=== PATIENT | male | born 1940 | race Caucasian/White ===

== ENCOUNTER 2017-10-29 14:53 | Observation (INO) | payer OTHER ==
[~2017-10-29] VITALS: Ht 177.8 cm; Wt 91.6 kg
[2017-10-29 14:55] VITALS: BP 161/86
[2017-10-29] MEDS ORDERED: METFORMIN HCL500 MG PO (14:58)
[2017-10-29] MEDS ORDERED: PRINIVIL20 MG PO (14:59)
[2017-10-29 15:18] LABS: ABSOLUTE BASOPHILS 0.1 thou/uL (0.0-0.2); ABSOLUTE EOSINOPHILS 0.3 thou/uL (0.0-0.7); ABSOLUTE LYMPHOCYTES 2.6 thou/uL (0.8-5.3); ABSOLUTE MONOCYTES 0.7 thou/uL (0.0-1.2); ABSOLUTE NEUTROPHILS 3.8 thou/uL (1.6-8.1); BASOPHILS 0.8 %; EOSINOPHILS 3.8 %; HEMATOCRIT 42.2 % (42.0-52.0); HEMOGLOBIN 14.8 gm/dL (14.0-18.0); LYMPHOCYTES 35.2 %; MCH 33.6 pg (26.0-34.0); MCHC 35.1 g/dL (28.0-37.0); MCV 95.5 fL (80.0-100.0); MONOCYTES 9.4 %; MPV 7.9 fl. (7.2-11.1); NUCLEATED RBCS 0 /100WBC; PLATELET COUNT* 329 thou/uL (150-400); POLYS 50.8 %; RBC 4.42 mil/uL (4.50-6.00); RDW-CV 12.8 % (10.5-14.5); WBC 7.4 thou/uL (4.0-11.0)
[2017-10-29 15:27] LABS: ANION GAP 6 mmol/L (7-16); BUN 13 mg/dL (7-18); CALCIUM 9.7 mg/dL (8.5-10.1); CHLORIDE 103 mmol/L (98-107); CO2 29 mmol/L (21-32); CREATININE 1.3 mg/dL (0.6-1.3); GLUCOSE 136 mg/dL (70-99); POTASSIUM 3.9 mmol/L (3.5-5.1); SODIUM 138 mmol/L (136-145)
[2017-10-29 15:30] LABS: APTT 26.5 Seconds (25.0-31.3); PROTIME 9.8 Seconds (9.20-11.50)
[2017-10-29 15:49] LABS: ALBUMIN 4.3 g/dL (3.4-5.0); ALKALINE PHOSPHATASE 75 U/L (46-116); CK-MB MASS 0.7 ng/mL (<0.5-3.6); LIPASE 137 U/L (73-393); MAGNESIUM 1.8 mg/dL (1.8-2.4); NT-PRO BRAIN NAT PEPTIDE 86 pg/mL (<300); SGOT 32 U/L (15-37); SGPT 59 U/L (30-65); TOTAL BILIRUBIN 1.3 mg/dL (<0.1-1.0); TOTAL PROTEIN 7.8 g/dL (6.4-8.2); TROPONIN-I LEVEL <0.06 ng/mL (<0.06)
[2017-10-29 16:34] VITALS: BP 149/51
[2017-10-29 16:45] VITALS: BP 186/84
[2017-10-29] MEDS ORDERED: VITAMINC500 PO (17:27)
[2017-10-29] MEDS ORDERED: VITAMIN D3400 UNIT PO (17:27)
[2017-10-29] MEDS ORDERED: FISH OIL 1,001000 M2 PO (17:28)
[2017-10-29] MEDS ORDERED: ASPIR 8181 M1 PO (17:28)
[2017-10-29] MEDS ORDERED: GLUCOSAMINE HC500 MG PO (17:29)
[2017-10-29] MEDS ORDERED: UNICOMPLEX M TA1 TA1 PO (17:30)
[2017-10-29 20:00] VITALS: BP 167/78
[2017-10-30] VITALS: BP 152/76
[2017-10-30 04:00] VITALS: BP 137/69
[2017-10-30 12:02] VITALS: BP 123/87
--- NOTE | 2017-10-30 12:40 | EKG ---
[place] [address] ELECTROCARDIOGRAM REPORT Name: KEVIN BANDA Room: [address] ADM IN M.R.#: [id number] Admission: 10/29/17 Attend Phys: Jane Alvarado MD Discharge: Date of : 40 Report #: [id number] THIS REPORT FOR: //name// [facility] ED Test Date: 2017-10-29 Test Time: 15:08:13 Pat Name: KEVIN BANDA Department: Room: [facility] Gender: M Siphoner: [place] : 1940 Requested By: Yohan Wesley Order Number: [id number] MD: Yung Ashraf Measurements Intervals [place] Rate: 96 P: 47 ME: 212 QRS: -9 QRSD: 100 T: 67 QT: 339 QTc: 429 Interpretive Statements Sinus tachycardia Multiple ventricular premature complexes Borderline prolonged ME interval Abnormal R-wave progression, early transition Left ventricular hypertrophy No previous ECG available for comparison Electronically Signed On 10-30-2017 12:39:56 CDT by Yung Ashraf [email or web address] <ELECTRONICALLY SIGNED> By: Yung Ashraf MD, [facility] 10/30/17 1239 1508 1508 Yung Ashraf MD, [facility] /EPI
--- NOTE | 2017-10-30 12:40 | EKG ---
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
[2017-10-30 15:36] VITALS: BP 138/58
[2017-10-30 20:00] VITALS: BP 125/63
[2017-10-31] VITALS: BP 128/68
[2017-10-31 04:39] VITALS: BP 134/65
[2017-10-31 05:11] LABS: ABSOLUTE BASOPHILS 0.1 thou/uL (0.0-0.2); ABSOLUTE EOSINOPHILS 0.3 thou/uL (0.0-0.7); ABSOLUTE MONOCYTES 1.1 thou/uL (0.0-1.2); ABSOLUTE NEUTROPHILS 4.6 thou/uL (1.6-8.1); BASOPHILS 0.8 %; EOSINOPHILS 3.5 %; HEMATOCRIT 39.7 % (42.0-52.0); HEMOGLOBIN 13.6 gm/dL (14.0-18.0); LYMPHOCYTES 32.8 %; MCHC 34.4 g/dL (28.0-37.0); MONOCYTES 12.1 %; MPV 8.2 fl. (7.2-11.1); NUCLEATED RBCS 0 /100WBC; PLATELET COUNT* 284 thou/uL (150-400); POLYS 50.8 %; RBC 4.14 mil/uL (4.50-6.00); RDW-CV 12.6 % (10.5-14.5); WBC 9.1 thou/uL (4.0-11.0)
[2017-10-31 06:12] LABS: ANION GAP 8 mmol/L (7-16); BUN 17 mg/dL (7-18); CALCIUM 9.5 mg/dL (8.5-10.1); CHLORIDE 104 mmol/L (98-107); CO2 27 mmol/L (21-32); CREATININE 1.4 mg/dL (0.6-1.3); GLUCOSE 125 mg/dL (70-99); POTASSIUM 3.8 mmol/L (3.5-5.1); SODIUM 139 mmol/L (136-145)
[2017-10-31 06:24] LABS: CHOLESTEROL 171 mg/dL (<200); HDL CHOLESTEROL 29 mg/dL (>40); LDL CHOLESTEROL 98 mg/dL (<100); TC:HDL 5.9 Ratio (Not establshd); TRIGLYCERIDE 224 mg/dL (<150); VLDL 45 mg/dL (<40)
[2017-10-31 06:25] LABS: SERUM ASSESSMENT Clear
[2017-10-31 08:00] VITALS: BP 163/57
--- NOTE | 2017-10-31 15:24 | 2DMMODE ---
[place] [address] 2 D/M-MODE ECHOCARDIOGRAM Name: KEVIN BANDA Room: [address] Jose De Jesus Christopher#: [id number] Admission: 10/29/17 Attend Phys: Jane Alvarado, Discharge: Date of : 40 Date of Service: 10/31/17 1524 Report #: [id number] THIS REPORT FOR: //name// APPROVED REPORT Study performed: 10/31/2017 11:55:14 EXAM: Comprehensive 2D, Doppler, and color-flow Echocardiogram Patient Location: In-Patient Room #: 230 Status: routine BSA: 2.10 HR: 80 bpm BP: 134/65 mmHg Rhythm: NSR Other Information Study Quality: Good Risk Factors: Cardiac Risk Factors: AGE , FHX of CAD Indications Arrhythmia Chest Pain 2D Dimensions LVEF(%): 72.35 (>50%) IVSd: 9.33 (7-11mm) LVOT Diam: 22.21 (18-24mm) LVDd: 45.27 mm PWd: 10.83 (7-11mm) Ascending Ao: 32.35 (22-36mm) LVDs: 26.55 (25-40mm) Aortic Root: 35.08 mm Ball's LVEF: 72.35 % Volumes Left Atrial Volume (Systole) LA ESV Index: 15.00 mL/m2 Aortic Valve AoV Peak Sigifredo.: 1.15 m/s AO Peak Gr.: 5.28 mmHg LVOT Max P.91 mmHg AO Mean Gr.: 3.11 mmHg LVOT Mean P.34 mmHg LVOT Max V: 0.85 m/s AO V2 VTI: 19.39 cm LVOT Mean V: 0.53 m/[place] [address] 2 D/M-MODE ECHOCARDIOGRAM Name: KEVIN BANDA Room: [address] MAceRAce#: [id number] Admission: 10/29/17 Attend Phys: Jane Alvarado, Discharge: Date of : 40 Date of Service: 10/31/17 1524 Report #: [id number] MONICA (VTI): 3.18 cm2 LVOT V1 VTI: 15.90 cm Mitral Valve E/A Ratio: 0.67 MV Decel. Time: 161.82 ms MV E Max Sigifredo.: 0.64 m/s MV PHT: 46.93 ms MVA (PHT): 4.69 cm2 TDI E/Lateral E': 6.40 E/Medial E': 7.11 Medial E' Sigifredo.: 0.09 m/s Lateral E' Sigifredo.: 0.10 m/s Pulmonary Valve PV Peak Sigifredo.: 1.12 m/s PV Peak Gr.: 4.98 mmHg Left Ventricle The left ventricle is normal size. There is normal LV segmental wall motion. There is normal left ventricular wall thickness. Left ventricular systolic function is normal. The left ventricular ejection fraction is within the normal range. LVEF is 60-65%. Grade I - abnormal relaxation pattern. Right Ventricle The right ventricle is normal size. The right ventricular systolic function is normal. Atria The left atrium size is normal. The right atrium size is normal. Aortic Valve The aortic valve is normal in structure. No aortic regurgitation is present. There is no aortic valvular stenosis. Mitral Valve The mitral valve is normal in structure. There is no mitral valve regurgitation noted. No evidence of mitral valve stenosis. Tricuspid Valve The tricuspid valve is normal in structure. Unable to assess PA pressure. Pulmonic Valve The pulmonary valve is normal in structure. [place] [address] 2 D/M-MODE ECHOCARDIOGRAM Name: KEVIN BANDA Room: [address]#: [id number] Admission: 10/29/17 Attend Phys: Jane Alvarado, Discharge: Date of : 40 Date of Service: 10/31/17 1524 Report #: [id number] valvular regurgitation. Great Vessels The aortic root is normal in size. IVC is normal in size and collapses with >50% inspiration Pericardium There is no pericardial effusion. <Conclusion> Left ventricular systolic function is normal. The left ventricular ejection fraction is within the normal range. <ELECTRONICALLY SIGNED> By: Mansoor Aguirre MD, FACC 10/31/17 1524 1524 1524 Mansoor Aguirre MD, FACC /INF
[2017-10-31 15:31] VITALS: BP 137/61
[2017-10-31 16:06] VITALS: BP 137/61
[2017-10-31] MEDS ORDERED: LOPRESSOR25 PO (16:41)
[2017-10-31 16:42] VITALS: BP 137/61
--- NOTE | 2017-11-01 17:14 | CARDNUC ---
[place] [address] CARDIAC NUCLEAR IMAGING REPORT Name: VERONIKAKEVIN [address]: [address]#: [id number] Admission: 10/29/17 Attend Phys: Jane Alvarado, Discharge: 10/31/17 Date of : 40 Date of Service: 11/01/17 1714 Report #: [id number] THIS REPORT FOR: //name// APPROVED REPORT Study performed: 10/30/2017 11:36:00 Indication: Chest pain, Dyspnea Patient Location: Out-Patient Stress Tech: Deepti Odom Stress Nurse: Patricia Lopez RN Ht: 5 ft 10 in Wt: 202 lbs BSA: 2.10 m2 HR: 81 bpm BP: 190/85 mmHg BMI: 28.98 Rhythm: NSR Medical History Allergies: No known drug allergies Exercise History: Indeterminate Resting Data Rest SPECT myocardial perfusion imaging was performed in supine position 30 minutes following the intravenous injection of 11.3 mCi of Tc-99m Sestamibi. Time of rest injection: 0945 The images were gated to evaluate regional wall motion and calculate left ventricular ejection fraction. Administration Route: IV Administration Site: Right AC Pharmacologic Stress Pharmacologic stress test was performed by injecting Regadenoson 0.4 mg IV push over 10-15 seconds immediately followed by the intravenous injection of 31.6 mCi of Tc-99m Sestamibi. Time of stress injection: 1140 Time of stress imagin Administration Route: IV Administration Site: Right AC Heart Rate at time of stress injection: 148 bpm. Gated Stress SPECT was performed 60 minutes after stress injection. The images were gated to evaluate regional wall motion and calculate left ventricular ejection fraction. [place] [address] CARDIAC NUCLEAR IMAGING REPORT Name: KEVIN BANDA Room: [address] Candi#: [id number] Admission: 10/29/17 Attend Phys: Jane Alvarado, Discharge: 10/31/17 Date of : 40 Date of Service: 11/01/17 1714 Report #: [id number] Stress Test Details Stress Test: Exercise stress testing was performed using a Charles protocol. HR Max Heart Rate (APMHR): 143 bpm Resting HR: 81 bpm Target HR (85% APMHR): 121 bpm Max HR Achieved: 148 bpm % of APMHR: 103 Recovery HR: 98 bpm BP Resting BP: 190/85 mmHg Recovery BP: 180/79 mmHg ECG Resting ECG: Sinus Rhythm, normal EKG Stress ECG: Sinus Tachycardia ST Change: None Arrhythmia: VPC's Recovery ECG: Sinus Rhythm, normal EKG Recovery ST Change: None Recovery Arrhythmia: VPC Clinical Reason for Termination: Completed protocol Stress Symptoms: Dyspnea Exercise duration: 5 min sec Exercise capacity: 7.05 METs The patient had no chest discomfort with standard Charles protocol exercise. Nurse Comments SOA DURING EXECRCISE Stress ECG Conclusion The baseline 12-lead electrocardiogram shows sinus rhythm without significant ST or T wave abnormality. Obtained during and after exercise stress showedST or T wave changes when compared to baseline. The patient unifocal premature ventricular contractions but no other significant stress-induced arrhythmias. Study Quality Study: Good Artifact: [place] [address] CARDIAC NUCLEAR IMAGING REPORT Name: VERONIKAKEVIN Room: [address] Candi#: [id number] Admission: 10/29/17 Attend Phys: Jane Alvarado, Discharge: 10/31/17 Date of : 40 Date of Service: 11/01/17 1714 Report #: [id number] Study Data At rest, the left ventricular ejection fraction was 67%.. Post stress, the left ventricular ejection was 68%.. TID = 0.97. Perfusion Normal left ventricular perfusion. Wall Motion Normal left ventricular wall motion. Nuclear Conclusion ECG Findings: negative for ischemia Clinical Findings: negative for ischemia Nuclear Findings: negative for ischemia Exercise Capacity: normal Left Ventricular Function: normal Risk Study: low Myocardial perfusion images show no defect to suggest infarct or ischemia. Left ventricular systolic function appears normal on gated studies. This is a low risk study. <Conclusion> The baseline 12-lead electrocardiogram shows sinus rhythm without significant ST or T wave abnormality. Obtained during and after exercise stress showedST or T wave changes when compared to baseline. The patient unifocal premature ventricular contractions but no other significant stress-induced arrhythmias. <ELECTRONICALLY SIGNED> By: Yung Ashraf MD, FACC 11/01/17 1714 13 13 Yung Ashraf MD, FACC /INF
--- NOTE | 2017-11-02 08:44 | CON ---
[address] [address] CONSULTATION Name: KEVIN BANDA Room: [address] Jose De Jesus Christopher#: [id number] Admission: 10/29/17 Attend Phys: Jane Alvarado MD Discharge: 10/31/17 Date of : 40 Report #: [id number] THIS REPORT FOR: //name// CC: Kathie Alvarado INDICATION: Palpitations and chest discomfort. HISTORY OF PRESENT ILLNESS: The patient is a fairly healthy 77-year-old with history of borderline diabetes and hypertension who presents to the hospital with complaints of palpitations beginning 2 days ago. He was seated in his chair when this began. At that time, he also had some discomfort in the left lower chest radiating to the left arm and neck. The pain was intermittent, waxing and waning. There was no association with activity. There was no associated nausea or vomiting. The pain gradually subsided, but the palpitations have persisted. Here in the hospital, he is noted to have PVCs as well as couplets and triplets of premature ventricular contractions. Cardiac enzymes are unremarkable. He is without other cardiac complaint. PAST MEDICAL HISTORY: 1. Hypertension. 2. Borderline diabetes. PAST SURGICAL HISTORY: None. SOCIAL HISTORY: The patient quit smoking in 1989. He does not drink alcohol. FAMILY HISTORY: Positive for coronary artery disease. The patient's father of heart disease at 64. All of his paternal uncles of heart disease. REVIEW OF SYSTEMS: GENERAL: He denies convulsions, seizures or focal paralysis. In general, there is no unexplained weight loss or fever. RESPIRATORY: He denies cough, sputum production or underlying lung disease. CARDIAC: He has palpitations, chest discomfort as outlined above. He is without significant shortness of breath, orthopnea, or paroxysmal nocturnal dyspnea. He denies any history of murmurs or edema. ENDOCRINE: He has borderline diabetes. Denies thyroid disorders. GASTROINTESTINAL: No vomiting, hematemesis, melena, hematochezia, jaundice, hepatitis. GENITOURINARY: No dysuria or hematuria. HEMATOLOGIC AND LYMPHATIC: No history of anemia, bleeding disorder, cancer, blood clots. ALLERGY AND IMMUNOLOGIC: He has no seasonal or medical allergies. PSYCHIATRIC: No depression or anxiety. MUSCULOSKELETAL: He has mild arthritis without [place] [address] CONSULTATION Name: KEVIN BANDA [address]: [address]#: [id number] Admission: 10/29/17 Attend Phys: Jane Alvarado MD Discharge: 10/31/17 Date of : 40 Report #: [id number] SKIN: No recent rashes, hives or chronic skin conditions. EYES: He does wear glasses. He has no acute loss in vision. EARS, NOSE, MOUTH, THROAT: Mild decreased hearing. No epistaxis. ALLERGIES: None. CURRENT MEDICATIONS: Fish oil 1000 mg daily, Protonix 40 mg daily, glucosamine 500 mg with meals, multivitamin 1 tablet daily, aspirin 81 mg daily, vitamin D 500 units daily, vitamin C 500 mg daily, lisinopril 40 mg daily, metformin 500 mg daily, Pepcid 20 mg b.i.d., Lovenox 40 units subcutaneous at bedtime. PHYSICAL EXAMINATION: VITAL SIGNS: Stable. Blood pressure 137/69, pulse is 70s and regular. GENERAL: This is a pleasant gentleman in no distress. Mood and affect appropriate. HEENT: The patient is wearing glasses. Extraocular muscles intact. Mucous membranes are moist. NECK: Shows no jugular venous distention. There are no carotid bruits. CHEST: Reveals clear lung rose without wheezes or rales. CARDIAC: Reveals a regular rhythm with normal S1 and S2. I do not appreciate gallop or murmur. ABDOMEN: Reveals normal bowel sounds. The abdomen is soft, nontender. EXTREMITIES: Shows no edema. Peripheral pulses 2+ and palpable. SKIN: Warm and dry. LABORATORY DATA: A 12-lead EKG shows sinus rhythm with nonspecific intraventricular conduction delay and unifocal premature ventricular contractions. Labs are reviewed. Sodium 138, potassium 3.9, chloride 103, bicarb 29, BUN 13, creatinine 1.3, serum glucose 136. LFTs within normal limits. Troponins are less than 0.06 on 3 separate occasions. NT-proBNP is 86. CBC shows a white blood cell count of 7.4, hemoglobin 14.8, platelet count 329,000. IMPRESSION AND RECOMMENDATIONS: 1. Chest discomfort. The etiology not clear. The patient has risk factors for coronary artery disease. We will proceed with noninvasive stress testing at this time. 2. Palpitations due to unifocal premature ventricular contractions as well as ventricular couplets and triplets. I would like to obtain echocardiogram to evaluate underlying cardiac structure and function and rule out significant left ventricular dysfunction. 3. Hypertension. Blood pressure adequately controlled on the patient's current [facility] [address] [place] [address] CONSULTATION Name: KEVIN BANDA Room: [address] Jose De Jesus Christopher#: [id number] Admission: 10/29/17 Attend Phys: Jane Alvarado MD Discharge: 10/31/17 Date of : 40 Report #: [id number]. 4. We will obtain lipid profile to evaluate lipid status. <ELECTRONICALLY SIGNED> By: Yung Ashraf MD, FACC 11/02/17 0844 1144 1900Yung Ashraf MD, FACC /nt
== END 2017-10-31 18:29 | disposition home or self-care (01) ==
LOC: M.ERS 14:53 → M.2W 16:03 → M.TBA-ER 16:03 → M.2W 16:48
PROVIDERS: Family Medicine; Internal Medicine; ADMIT Internal Medicine
DX: R07.89 Other chest pain (principal); I10 Essential (primary) hypertension; E11.9 Type 2 diabetes mellitus without complications; I49.3 Ventricular premature depolarization; E78.1 Pure hyperglyceridemia; R00.2 Palpitations; Z87.891 Personal history of nicotine dependence

== ENCOUNTER 2019-06-02 01:43 | Inpatient (IN) | payer MEDICARE ==
[~2019-06-02] VITALS: Ht 177.8 cm; Wt 94.2 kg
[~2019-06-02 01:43] MED LIST: ASPIR 8181 M1 PO; FISH OIL 1,001000 M2 PO; GLUCOSAMINE HC500 MG PO; LOPRESSOR25 PO; METFORMIN HCL500 MG PO; PRINIVIL20 MG PO; UNICOMPLEX M TA1 TA1 PO; VITAMIN D3400 UNIT PO; VITAMINC500 PO
[2019-06-02 01:51] VITALS: BP 222/99
[2019-06-02 02:04] LABS: ABSOLUTE BASOPHILS 0.1 thou/uL (0.0-0.2); ABSOLUTE EOSINOPHILS 0.3 thou/uL (0.0-0.7); ABSOLUTE LYMPHOCYTES 3.1 thou/uL (0.8-5.3); ABSOLUTE MONOCYTES 1.5 thou/uL (0.0-1.2); ABSOLUTE NEUTROPHILS 9.4 thou/uL (1.6-8.1); BASOPHILS 0.6 %; EOSINOPHILS 1.8 %; LYMPHOCYTES 21.6 %; MCH 33.1 pg (26.0-34.0); MCHC 35.1 g/dL (28.0-37.0); MCV 94.2 fL (80.0-100.0); MONOCYTES 10.6 %; MPV 7.1 fl. (7.2-11.1); NUCLEATED RBCS 0 /100WBC; PLATELET COUNT* 373 thou/uL (150-400); POLYS 65.4 %; RBC 4.25 mil/uL (4.50-6.00); RDW-CV 12.8 % (10.5-14.5); WBC 14.3 thou/uL (4.0-11.0)
[2019-06-02 02:20] LABS: CALCIUM 9.9 mg/dL (8.5-10.1); CREATININE 1.2 mg/dL (0.6-1.3); POTASSIUM 3.7 mmol/L (3.5-5.1)
[2019-06-02 02:27] LABS: APTT 26.4 Seconds (25.0-31.3)
[2019-06-02 02:30] LABS: ALBUMIN 4.2 g/dL (3.4-5.0); TOTAL BILIRUBIN 0.9 mg/dL (<0.1-1.0)
[2019-06-02 07:12] VITALS: BP 169/83
[2019-06-02 11:20] VITALS: BP 169/76
[2019-06-02 12:58] VITALS: BP 168/87
[2019-06-02 19:50] VITALS: BP 154/91
[2019-06-02 23:40] VITALS: BP 139/80
[2019-06-03 04:21] VITALS: BP 147/78
[2019-06-03 04:44] LABS: ABSOLUTE EOSINOPHILS 0.1 thou/uL (0.0-0.7); ABSOLUTE LYMPHOCYTES 2.2 thou/uL (0.8-5.3); ABSOLUTE MONOCYTES 1.6 thou/uL (0.0-1.2); ABSOLUTE NEUTROPHILS 6.8 thou/uL (1.6-8.1); BASOPHILS 0.4 %; EOSINOPHILS 0.8 %; HEMATOCRIT 35.7 % (42.0-52.0); HEMOGLOBIN 12.6 gm/dL (14.0-18.0); LYMPHOCYTES 20.1 %; MCH 33.2 pg (26.0-34.0); MCHC 35.3 g/dL (28.0-37.0); MCV 94.1 fL (80.0-100.0); MONOCYTES 14.8 %; NUCLEATED RBCS 0 /100WBC; PLATELET COUNT* 314 thou/uL (150-400); POLYS 63.9 %; RBC 3.79 mil/uL (4.50-6.00); WBC 10.7 thou/uL (4.0-11.0)
[2019-06-03 05:07] LABS: CHOLESTEROL 164 mg/dL (<200); HDL CHOLESTEROL 28 mg/dL (>40); LDL CHOLESTEROL 94 mg/dL (<100); TC:HDL 5.9 Ratio (Not establshd); TRIGLYCERIDE 213 mg/dL (<150); VLDL 43 mg/dL (<40)
[2019-06-03 05:18] LABS: CALCIUM 8.8 mg/dL (8.5-10.1); CREATININE 1.2 mg/dL (0.6-1.3); POTASSIUM 3.9 mmol/L (3.5-5.1)
[2019-06-03 05:38] LABS: SERUM ASSESSMENT Clear; TROPONIN-I LEVEL 0.65 ng/mL (<0.06)
[2019-06-03 08:00] VITALS: BP 172/85
[2019-06-03] MEDS ORDERED: PLAVIX 75 MG TA75 M1 PO (10:39)
[2019-06-03] MEDS ORDERED: LIPITOR40 MG PO (10:39)
--- NOTE | 2019-06-03 10:48 | CON ---
[address] [address] CONSULTATION Name: KEVIN BANDA Room: [address] IN M.R.#: [id number] Admission: 06/02/19 Attend Phys: Markel Quach MD Discharge: Date of : 40 Report #: [id number] THIS REPORT FOR: //name// cc: Conchis Ortega MD, K. Gay MD ~ THIS REPORT FOR: //name// CC: Kathie Ortega DATE OF SERVICE: 06/02/2019 HISTORY OF PRESENT ILLNESS: The patient is a 79-year-old white male, who I was asked to see in the Emergency Room today after he complained of chest pressure. The patient initially presented back in 2018 with palpitations. He had some pain in the left side of his chest. He was noted to have PVCs. He was seen by my partner, Dr. Ashraf. He underwent a nuclear stress test that showed no ischemia with an ejection fraction 67%. Echocardiogram showed an ejection fraction of 60%. He was placed on metoprolol. He notes that since that time, the palpitations have improved. He is not very active at this time. He was doing well until last night, he went to bed about 11:00. At midnight, he woke up with a tightness in his chest, became short of breath. There is no radiation of the pain. He denied any nausea, diaphoresis. The pain persisted about 3 hours. He finally came to the Emergency Room last night. He was admitted for further evaluation and treatment. He denies exertional dyspnea, palpitations, syncope, peripheral edema. He has had no fever or cough. Denied the pain related to food. He had no belching. He had no trauma to his chest or rash. PAST MEDICAL HISTORY: Otherwise, he has had no surgical procedures. He does have a history of hypertension, diabetes. CURRENT MEDICATIONS: Include aspirin, lisinopril, metformin, metoprolol. ALLERGIES: He has no known drug allergies. FAMILY HISTORY: His father had heart disease. 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 Quit smoking years ago. No alcohol abuse. REVIEW OF SYSTEMS: He has had no history of stroke, asthma, peptic ulcer disease, liver disease, kidney disease, cancer, psychiatric illness, chronic skin condition. PHYSICAL EXAMINATION: [place] [address] CONSULTATION Name: KEVIN BANDA Room: [address]#: [id number] Admission: 06/02/19 Attend Phys: Markel Quach MD Discharge: Date of : 40 Report #: [id number] GENERAL: Revealed an elderly male, appeared in no distress. VITAL SIGNS: He had a blood pressure of 150/70, pulse is 80. He was afebrile. HEENT: He was anicteric. Conjunctivae pink. Mucous membranes moist. NECK: Veins nondistended. There was a left carotid bruit noted. CHEST: Clear to auscultation. CARDIOVASCULAR: Regular rate and rhythm, S4 gallop. ABDOMEN: Soft. EXTREMITIES: Had no edema. Posterior tibial pulse 2+ bilaterally. SKIN: Warm, dry. NEUROLOGIC: Nonfocal. RADIOLOGICAL DATA: His ECG showed a sinus rhythm with a right bundle-branch block. His workup, he had a portable chest x-ray last night that showed a granuloma, otherwise normal. LABORATORY DATA: Sodium 140, BUN 15, creatinine 1.2, glucose is 163. His liver function studies were normal. Troponins all 0.06. Previous LDL was 98 in 2018. His white blood cell count 14.3, hemoglobin 14.0. IMPRESSION AND RECOMMENDATIONS: 1. Possible unstable angina. Abnormal ECG. Recommend cardiac catheterization. 2. Diabetes. 3. Hypertension. The patient is on a beta ping and ROB inhibitor. 4. Abnormal ECG. 5. History of hypertriglyceridemia. <ELECTRONICALLY SIGNED> By: Mansoor Aguirre MD, [facility] 06/03/19 1048 0842 [id number] Aguirre MD, [facility] /nt
[2019-06-03 11:30] VITALS: BP 172/85
--- NOTE | 2019-06-03 11:43 | CARD ---
[address] [address] CARDIAC CATH REPORT Name: VERONIKAKEVIN Room: [address] IN [facility]#: [id number] Admission: 06/02/19 Attend Phys: Markel Quach MD Discharge: Date of : 40 Report #: [id number] THIS REPORT FOR: //name// cc: Conchis Ortega MD, K. Gay MD ~ THIS REPORT FOR: //name// APPROVED REPORT Study performed: 06/02/2019 12:14:44 Patient Details Patient Status: ED Room #: The patient is a 79 year-old male Event Personnel Mansoor Aguirre Glass Sander, Brittany Conrad Foot Roentgenologist, Cynthia Jimenez RN Monitor, Maile Harding RTR Scrub Procedures Performed Left Heart Catheterization, Coronary Angiography and Percutaneous Coronary Intervention Indication Arrhythmia, Unstable angina , Chest pain Risk Factors Hypercholesterolemia, Hypertension, Diabetes Admission/Lab Medications/Medications given during procedure Glycoprotein IllbIlla Inhibitors, Heparin Unfract., Plavix PO 600 mg Procedure Narrative The patient was brought urgently to the Cardiac Catheterization Laboratory and was prepped and draped in a sterile manner. The right femoral was infiltrated with 1% Lidocaine subcutaneous anesthesia. A Slender Glidesheath sheath was inserted into the right femoral artery. Coronary angiography was performed using coronary diagnostic catheters. The right coronary system was accessed and visualized with a Diagnostic catheter. The left coronary system was accessed and visualized with a Diagnostic catheter. The left ventricle was accessed and visualized with [place] [address] CARDIAC CATH REPORT Name: KEVIN BANDA Room: [address] IN ..#: [id number] Admission: 06/02/19 Attend Phys: Markel Quach MD Discharge: Date of : 40 Report #: [id number] ventricular/Aortic Valve gradient assessed via catheter pullback. Left ventriculogram was performed in JON projection. Closure device was deployed with a 6 Fr Angioseal. The patient tolerated the procedure well and there were no complications associated with the procedure. There was no hematoma. Diagnostic catheterization performed from the right radial artery. RCA was difficult to cannulate because of tortous aorta. Attempted JR4, 3 drc, Amplatz I right, and Amplatz I left. Was able to visualize RCA using a right Amplatz II catheter. Decided to perform stent placement from the right femoral artery. Vascband was placed over the right radial artery at the end of the procedure. Intraoperative Conscious Sedation Fentanyl mcg Coronary Angiography The patient's coronary anatomy is right dominant. Diagnostic Cath Left Main 30% proximal stenosis LAD 60% mid stenosis Circumflex 50% mid stenosis Right Coronary 80% mid stenosis and 60% distal stenosis Ramus 50% mid stenosis Left Ventriculography The left ventricular ejection fraction is estimated to be 60-65%. Left ventricular wall motion abnormalities are not present. There is no mitral insufficiency. Hemodynamics The aortic pressure is 155/66 mmHg with a mean of 94 mmHg. The left ventricular pressure is 165/-4 mmHg with a mean of mmHg. The left ventricular end diastolic pressure is 5 mmHg. PCI Technique Lesion Anticoagulation was achieved with Heparin. iv bolus of aggarstat given Percutaneous coronary intervention was performed on the mid right coronary artery. The lesion stenosis prior to intervention was 80% with JORGE 3 flow. A 6FR JCR 4 100CM Guide Catheter was used to engage the rca ostium. A IG: BMW 190cm Interventional Guidewire was used to cross the lesion. BALLOON DILATION A Balloon catheter Trek RX 2.5 X 12 was inserted and inflated up to 10.00atm for 16seconds. Repeat [place] [address] CARDIAC CATH REPORT Name: KEVIN BANDA Room: [address]#: [id number] Admission: 06/02/19 Attend Phys: Markel Quach MD Discharge: Date of : 40 Report #: [id number] post-dilatation results: 40% stenosis. Additional Inflation: 8.00atm for 14seconds. Additional Inflation: 10.00atm for 17seconds. STENT DEPLOYMENT A drug-eluting stent Xience Paty 2.5X23mm was inserted and inflated up to 12.00atm for 19seconds. Repeat angiography revealed the following post-stent deployment results: 0% stenosis. Additional Inflation: 14.00atm for 19seconds. Additional Inflation: 16.00atm for 14seconds. Final angiography reveals 0 % stenosis with JORGE 3 flow. Conclusion 1. difficulty cannulating rca from the right radial artery because of tortuous aorta 2. 60% stenosis of the mid lad, 50% stenosis of the circumflex, and 80% stenosis of the mid rca 3. successful placement of a drug eluting stent in the mid rca 4. LVEF 60-65% Recommendations Cardiac Rehabilitation Referral Aggressive Medical Therapy Medications Administered Clopidogrel <ELECTRONICALLY SIGNED> By: Mansoor Aguirre MD, FACC 06/03/19 1142 1142 1142Dadeline Aguirre MD, FACC /INF
[2019-06-03] MEDS ORDERED: NITROGLYCERIN0.4 MG SUBLING (12:02)
--- NOTE | 2019-06-08 14:59 | EKG ---
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1940 Requested By: Missy Mann Order Number: [id number] MD: Mansoor Aguirre Measurements Intervals [place] Rate: 108 P: 62 AR: 198 QRS: -5 QRSD: 97 T: 93 QT: 332 QTc: 445 Interpretive Statements Sinus tachycardia LVH with secondary repolarization abnormality Compared to ECG 10/29/2017 16:42:14 Left ventricular hypertrophy now present Early repolarization now present Sinus rhythm no longer present Ventricular premature complex(es) no longer present Electronically Signed On 06-04-2019 10:22:38 BANANA GRADER by Mansoor Aguirre [email or web address] <ELECTRONICALLY SIGNED> By: Mansoor Aguirre MD, [facility] 06/04/19 1022 5 5 Mansoor Aguirer MD, [facility] /EPI
--- NOTE | 2019-06-08 14:59 | EKG ---
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1885 : 1940 Requested By: Missy Mann Order Number: [id number] MD: Mansoor Aguirre Measurements Intervals [employer] Rate: 97 P: 40 [place]: 196 QRS: -8 QRSD: 96 T: 109 QT: 336 QTc: 427 Interpretive Statements Incomplete analysis due to missing data in precordial lead(s) Sinus rhythm LVH with secondary repolarization abnormality Missing lead(s): V1 Compared to ECG 10/29/2017 16:42:14 no change Electronically Signed On 06-03-2019 11:09:51 SHRIMP CLEANER by Mansoor Agurire [email or web address] <ELECTRONICALLY SIGNED> By: Mansoor Aguirre MD, FACC 06/03/19 1109 1618 1618 Mansoor Aguirre MD, [facility] /EPI
== END 2019-06-03 13:50 | disposition home or self-care (01) | DRG 247 ==
LOC: M.ERS 01:43 → M.TBA-ER 03:14 → M.ERS 03:14 → M.TBA-ER 12:14 → M.2W 15:31
PROVIDERS: Internal Medicine Cardiovascular Disease; Personal Emergency Response Attendant; ADMIT Internal Medicine
PROC: 027034Z Dilation of Coronary Artery, One Artery with Drug-eluting Intraluminal Device, Percutaneous Approach (ICD-10-PCS; principal; 2019-06-02)
PROC: B2111ZZ Fluoroscopy of Multiple Coronary Arteries using Low Osmolar Contrast (ICD-10-PCS; principal; 2019-06-02)
PROC: B2151ZZ Fluoroscopy of Left Heart using Low Osmolar Contrast (ICD-10-PCS; principal; 2019-06-02)
PROC: 4A023N7 Measurement of Cardiac Sampling and Pressure, Left Heart, Percutaneous Approach (ICD-10-PCS; principal; 2019-06-02)
DX: I25.110 Atherosclerotic heart disease of native coronary artery with unstable angina pectoris (principal); I10 Essential (primary) hypertension; E11.9 Type 2 diabetes mellitus without complications; E78.1 Pure hyperglyceridemia; Z79.82 Long term (current) use of aspirin; Z79.899 Other long term (current) drug therapy; Z79.84 Long term (current) use of oral hypoglycemic drugs; Z82.49 Family history of ischemic heart disease and other diseases of the circulatory system; Z87.891 Personal history of nicotine dependence

== ENCOUNTER 2020-05-10 12:17 | Observation (INO) | payer MEDICARE ==
[~2020-05-10] VITALS: Ht 177.8 cm; Wt 91.5 kg
[~2020-05-10 12:17] MED LIST changes: +LIPITOR40 MG PO; +NITROGLYCERIN0.4 MG SUBLING; +PLAVIX 75 MG TA75 M1 PO
[2020-05-10 12:23] VITALS: BP 208/92
[2020-05-10 12:34] LABS: ABSOLUTE BASOPHILS 0.1 thou/uL (0.0-0.2); ABSOLUTE EOSINOPHILS 0.4 thou/uL (0.0-0.7); ABSOLUTE LYMPHOCYTES 2.6 thou/uL (0.8-5.3); ABSOLUTE MONOCYTES 0.8 thou/uL (0.0-1.2); ABSOLUTE NEUTROPHILS 4.8 thou/uL (1.6-8.1); BASOPHILS 1.1 %; EOSINOPHILS 4.2 %; HEMATOCRIT 42.2 % (42.0-52.0); HEMOGLOBIN 14.3 gm/dL (14.0-18.0); LYMPHOCYTES 30.1 %; MCH 31.9 pg (26.0-34.0); MCHC 33.8 g/dL (28.0-37.0); MCV 94.3 fL (80.0-100.0); MONOCYTES 9.3 %; MPV 7.3 fl. (7.2-11.1); NUCLEATED RBCS 0 /100WBC; PLATELET COUNT* 287 thou/uL (150-400); POLYS 55.3 %; RBC 4.48 mil/uL (4.50-6.00); RDW-CV 13.7 % (10.5-14.5); WBC 8.8 thou/uL (4.0-11.0)
[2020-05-10 12:44] LABS: CREATININE 1.4 mg/dL (0.6-1.3); POTASSIUM 3.9 mmol/L (3.5-5.1)
[2020-05-10 12:46] LABS: APTT 25.6 Seconds (25.0-31.3); PROTIME 10.7 Seconds (9.20-11.50)
[2020-05-10 12:54] LABS: ALBUMIN 4.2 g/dL (3.4-5.0); MAGNESIUM 1.7 mg/dL (1.8-2.4); TOTAL BILIRUBIN 2.1 mg/dL (<0.1-1.0); TOTAL PROTEIN 7.5 g/dL (6.4-8.2)
[2020-05-10 16:30] VITALS: BP 136/63
[2020-05-10 20:49] VITALS: BP 170/75
[2020-05-11] VITALS (7 sets, daily range): BP systolic 130–183; BP diastolic 61–86
[2020-05-11 04:56] LABS: CREATININE 1.2 mg/dL (0.6-1.3); POTASSIUM 3.3 mmol/L (3.5-5.1)
[2020-05-11 05:16] LABS: HEMATOCRIT 36.1 % (42.0-52.0); HEMOGLOBIN 12.4 gm/dL (14.0-18.0); MCH 32.2 pg (26.0-34.0); MCHC 34.3 g/dL (28.0-37.0); MCV 93.8 fL (80.0-100.0); MPV 7.9 fl. (7.2-11.1); RBC 3.85 mil/uL (4.50-6.00); RDW-CV 13.8 % (10.5-14.5)
--- NOTE | 2020-05-11 12:41 | EKG ---
[place] [address] ELECTROCARDIOGRAM REPORT Name: RAQUEL BANDAUR Lia Room: [address] M.R.#: [id number] Admission: 05/10/20 Attend Phys: Linda George MD Discharge: Date of : 40 Date of Service: 05/10/20 1221 Report #: [id number] THIS REPORT FOR: //name// [facility] ED Test Date: 2020-05-10 Test Time: 12:21:13 Pat Name: KEVIN BANDA Department: Room: [facility] Gender: M Medical Lab Director: ANTOINETTE : 1940 Requested By: Bolivar Coker Order Number: [id number] MD: Drew Stewart Measurements Intervals [place] [employer] Rate: 82 P: 49 NE: 200 QRS: 7 QRSD: 105 T: 83 QT: 375 QTc: 438 Interpretive Statements Sinus rhythm Probable left atrial enlargement LVH with secondary repolarization abnormality Baseline wander in lead(s) V2 Compared to ECG 06/02/2019 16:18:17 No significant changes Electronically Signed On 05-11-2020 12:41:00 PHOTONICS TECHNICIAN by Drew Stewart [email or web address] <ELECTRONICALLY SIGNED> By: Stone Stewart MD, [facility] 05/11/20 1241 1221 1221 Stone Stewart MD, [facility] /EPI
--- NOTE | 2020-05-11 12:44 | CON ---
[address] [address] CONSULTATION Name: KEVIN BANDA Room: [address] Jose De Jesus Christopher#: [id number] Admission: 05/10/20 Attend Phys: Linda George MD Discharge: Date of : 40 Report #: [id number] THIS REPORT FOR: cc: Conchis Ortega MD, K. Gay MD ~ Stoen Stewart MD [facility] DATE OF SERVICE: 05/11/2020 CARDIOLOGY CONSULTATION HISTORY OF PRESENT ILLNESS: I was asked by Dr. George to see this 80-year-old white male in Cardiology consultation for evaluation and treatment of chest pain. This man has a history of coronary artery disease. He had a stent approximately a year ago. He has essential hypertension and diabetes mellitus. Apparently, he does have hyperlipidemia. He developed chest pain at approximately 3:00 a.m. yesterday morning after he had gotten up to go the bathroom. The pain is in the lower chest anteriorly and near the epigastrium. It was in a fairly small area, like tennis ball size. It had mildly sharp quality to it. It was not like his previous chest pain, which was a severe pressure across his entire chest. This pain was a 5 or 6 on a scale of 10 that is this current event. It began at 3:00 a.m., it lasted until 12:30. He did take a nitroglycerin at 11:00 a.m., which seemed to help; it improved the pain. The pain went away when he got to the Emergency Room. The pain was not particularly worse with activity or better with rest. It did occur at rest. It was associated with shortness of breath, nausea, and diaphoresis. There is no relationship to food. There was no radiation of the pain. He does have chronic dyspnea on exertion, but not orthopnea, PND, or edema. He has not had syncope. Coronary risk factors include a past history of smoking in the distant past. He does have hypercholesterolemia and diabetes he says. He does have high blood pressure. He does have a family history of coronary heart disease. He does not have any kidney disease. He has not had any peripheral vascular disease, although there is a mention according to him, although he is not a good historian. The patient, also according to the ER note, had some sort of carotid stenosis. PAST MEDICAL HISTORY: As described above. Apparently, he may have had carotid surgery on his left side of his neck. ALLERGIES: He has no known allergies. MEDICATIONS: Plavix 75 mg daily, atorvastatin 40 mg daily, lisinopril 20 mg daily, ascorbic acid 500 mg daily, vitamin D 400 units daily, aspirin 81 mg daily, glucosamine 500 mg t.i.d., multivitamin with iron daily, metoprolol 25 mg b.i.d., p.r.n. nitroglycerin, and metformin 500 [place] [address] CONSULTATION Name: KEVIN BANDA Room: [address] Jose De Jesus Christopher#: [id number] Admission: 05/10/20 Attend Phys: Linda George MD Discharge: Date of : 40 Report #: [id number] FAMILY HISTORY: Positive for father and uncles having coronary heart disease and both he had father and some uncles had suddenly with heart attacks. SOCIAL HISTORY: He is . 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 Does not smoke, drink or use illegal drugs. REVIEW OF SYSTEMS: Positive for chest discomfort, shortness of breath with exercise, shortness of breath lying down, heart murmur, diabetes, arthritis, wearing glasses, some vision loss, decreased hearing and wearing dentures. Otherwise, his review of systems is negative for some 35 different complaints in 14 different system categories, including central nervous system, general, respiratory, cardiovascular, endocrine, gastrointestinal, genitourinary, hematologic, lymphatic, allergic, immunologic, psychiatric, musculoskeletal, skin, eyes, ears, nose, mouth, and throat. Please see review of system form for details and negatives in review of systems. PHYSICAL EXAMINATION: GENERAL: He presents as well-developed, well-nourished, white male, in no acute distress. VITAL SIGNS: His pulse was 70 and regular, blood pressure is 130/70, respirations 18 and regular, temperature is 98.2. HEENT: His head was atraumatic. Eyes clear. NECK: Supple. There is no jugular venous distention or hepatojugular reflux. Thyroid is not enlarged. There is no adenopathy. SKIN: Warm and dry. Mucous membranes are moist. LUNGS: Clear to auscultation and percussion. HEART: Revealed normal first and second heart sound. There is soft S4. There is no S3. There are no murmurs, rubs, thrills, heaves or gallops. PMI is nondisplaced. ABDOMEN: Soft, flat and nontender. No palpable masses. No organomegaly. EXTREMITIES: Reveal no cyanosis, clubbing or edema. NEUROLOGIC: The patient mentated normally, talked normally, and moved all extremities normally. LABORATORY DATA: His EKG shows normal sinus rhythm, heart rate was 82. There is left atrium enlargement. There is left ventricular hypertrophy. There are ST abnormalities that could be due to LVH, but may be due to ischemia. They are in multiple leads, principally the lateral chest leads, although lead [address] depression as well. His chest x-ray was normal. His NT-proBNP was only 55. Troponins were negative x 3. IMPRESSION: 1. Chest pain. [address] [address] CONSULTATION Name: KEVIN BANDA Lia Room: [address] Jose De Jesus Christopher#: [id number] Admission: 05/10/20 Attend Phys: Linda George MD Discharge: Date of : 40 Report #: [id number] 2. Coronary artery disease. 3. Status post coronary stent. 4. Essential hypertension. 5. Eau-rqrxgou-mwovzgsdz diabetes mellitus. 6. Hypercholesterolemia. RECOMMENDATION: I would get a stress test and an echo on him. Thank you very much for asking me to see the patient. If there are any questions, please feel free to contact me. <ELECTRONICALLY SIGNED> By: Stone Stewart MD, FACC 05/11/20 1244 0943 [id number]. Drew Stewart MD, FACC /nt
[2020-05-12 04:25] VITALS: BP 157/75
[2020-05-12 05:07] LABS: CHOLESTEROL 94 mg/dL (<200); HDL CHOLESTEROL 28 mg/dL (>40); LDL CHOLESTEROL 41 mg/dL (<100); TC:HDL 3.4 Ratio (Not establshd); TRIGLYCERIDE 127 mg/dL (<150); VLDL 25 mg/dL (<40)
[2020-05-12 05:19] LABS: SERUM ASSESSMENT Clear
[2020-05-12 08:00] VITALS: BP 121/61; BP 171/70
[2020-05-12 11:22] VITALS: BP 187/84
[2020-05-12 14:45] VITALS: BP 184/81
[2020-05-12 15:21] VITALS: BP 184/81
--- NOTE | 2020-05-12 15:45 | 2DMMODE ---
[place] [address] 2 D/M-MODE ECHOCARDIOGRAM Name: KEVIN BANDA Lia Room: [address] Jose De Jesus Christopher#: [id number] Admission: 05/10/20 Attend Phys: Linda George MD Discharge: 05/12/20 Date of : 40 Date of Service: 05/12/20 1544 Report #: [id number] THIS REPORT FOR: cc: Conchis Ortega MD, K. Gay MD Holkins, John M. MD [facility] ~ APPROVED REPORT Study performed: 05/12/2020 09:26:35 EXAM: Comprehensive 2D, Doppler, and color-flow Echocardiogram Patient Location: In-Patient Room #: [facility] BSA: 2.09 HR: 107 bpm BP: 157/75 mmHg Other Information Study Quality: Good Indications CAD 2D Dimensions IVSd: 11.45 (7-11mm) LVOT Diam: 20.89 (18-24mm) LVDd: 39.83 mm PWd: 7.75 (7-11mm) Ascending Ao: 31.10 (22-36mm) LVDs: 21.92 (25-40mm) Aortic Root: 35.33 mm Volumes Left Atrial Volume (Systole) LA ESV Index: 15.40 mL/m2 Aortic Valve AoV Peak Sigifredo.: 1.33 m/s AO Peak Gr.: 7.10 mmHg LVOT Max P.00 mmHg AO Mean Gr.: 3.82 mmHg LVOT Mean P.54 mmHg LVOT Max V: 1.12 m/s AO V2 VTI: 19.61 cm LVOT Mean V: 0.73 m/s MONICA (VTI): 2.98 cm2 LVOT V1 VTI: 17.02 [place] [address] 2 D/M-MODE ECHOCARDIOGRAM Name: KEVIN BANDA Room: [address]#: [id number] Admission: 05/10/20 Attend Phys: Linda George MD Discharge: 05/12/20 Date of : 40 Date of Service: 05/12/20 1544 Report #: [id number] E/A Ratio: 0.58 MV Decel. Time: 128.46 ms MV E Max Sigifredo.: 0.62 m/s MV PHT: 37.25 ms MVA (PHT): 5.91 cm2 TDI E/Lateral E': 6.89 E/Medial E': 10.33 Medial E' Sigifredo.: 0.06 m/s Lateral E' Sigifredo.: 0.09 m/s Pulmonary Valve PV Peak Sigifredo.: 1.68 m/s PV Peak Gr.: 11.30 mmHg Left Ventricle The left ventricle is normal size. There is normal LV segmental wall motion. There is normal left ventricular wall thickness. Left ventricular systolic function is normal. The left ventricular ejection fraction is within the normal range. LVEF is 70%. Grade I - abnormal relaxation pattern. Right Ventricle The right ventricle is normal size. The right ventricular systolic function is normal. Atria The left atrium size is normal. The right atrium size is normal. Aortic Valve Aortic valve is mildly calcified. No aortic regurgitation is present. There is no aortic valvular stenosis. Mitral Valve The mitral valve is normal in structure. There is no mitral valve regurgitation noted. No evidence of mitral valve stenosis. Tricuspid Valve The tricuspid valve is normal in structure. There is no tricuspid valve regurgitation noted. Pulmonic Valve The pulmonary valve is normal in structure. There is no pulmonic valvular regurgitation. [place] [address] 2 D/M-MODE ECHOCARDIOGRAM Name: KEVIN BANDA Room: [address]#: [id number] Admission: 05/10/20 Attend Phys: Linda George MD Discharge: 05/12/20 Date of : 40 Date of Service: 05/12/20 1544 Report #: [id number] The aortic root is normal in size. IVC is normal in size and collapses >50% with inspiration. Pericardium There is no pericardial effusion. <Conclusion> The left ventricle is normal size. There is normal left ventricular wall thickness. Left ventricular systolic function is normal. The left ventricular ejection fraction is within the normal range. LVEF is 70%. Grade I - abnormal relaxation pattern. The right ventricle is normal size. The left atrium size is normal. Aortic valve is mildly calcified. No aortic regurgitation is present. There is no aortic valvular stenosis. The mitral valve is normal in structure. The tricuspid valve is normal in structure. IVC is normal in size and collapses >50% with inspiration. There is no pericardial effusion. There is normal LV segmental wall motion. <ELECTRONICALLY SIGNED> By: Nickolas Andersen MD, FACC 05/12/20 1544 1544 1544 Nickolas Andersen MD, FACC /INF
--- NOTE | 2020-05-12 16:32 | CARDNUC ---
[place] [address] CARDIAC NUCLEAR IMAGING REPORT Name: KEVIN BANDA Room: [address]RAce#: [id number] Admission: 05/10/20 Attend Phys: Linda George MD Discharge: 05/12/20 Date of : 40 Date of Service: 05/12/20 1631 Report #: [id number] THIS REPORT FOR: cc: Conchis Ortega MD, K. Gay MD Park, Jin S. MD ~ APPROVED REPORT Imaging Protocol: Rest Tc-99m/Stress Tc-99m 1 day Study performed: 05/11/2020 10:48:00 Indication: Chest pain, Dyspnea, NAUSEA,DIAPHOWIS, L CAROTID ENDARTERECTOMY, HEART MURMUR Patient Location: In-Patient Room #: 224 Stress Tech: Angelita Kaur Stress Nurse: Carrie Johnston RN Ht: 5 ft 10 in Wt: 201 lbs BSA: 2.09 m2 HR: 96 bpm BP: 205/86 mmHg BMI: 28.83 Medical History Medications: Aspirin 81 MG, PLAVIX,LISINOPRIL, METFORMIN, METOPROLOL, ATOVASTATIN, K-DUR NTG Allergies: No known drug allergies Cardiac Risk Factors: Tobacco History (Former), Age, Hyperlipidemia, HTN, DM, FHX of CAD Previous Cardiac Procedures: PCI, CAD Resting Data Rest SPECT myocardial perfusion imaging was performed in supine position 30 minutes following the intravenous injection of 9.5 mCi of Tc-99m Sestamibi. Time of rest injection: 08:45 The images were gated to evaluate regional wall motion and calculate left ventricular ejection fraction. Administration Route: IV Administration Site: Right AC Pharmacologic Stress Pharmacologic stress test was performed by injecting Regadenoson 0.4 mg IV push over 10-15 seconds immediately followed by the intravenous injection of 28.6 mCi of Tc-99[place] [address] CARDIAC NUCLEAR IMAGING REPORT Name: VERONIKAKEVIN Room: [address]#: [id number] Admission: 05/10/20 Attend Phys: Linda George MD Discharge: 05/12/20 Date of : 40 Date of Service: 05/12/20 1631 Report #: [id number] Time of stress injection: 10:05 Administration Route: IV Administration Site: Right AC Heart Rate at time of stress injection: 126 bpm. Gated Stress SPECT was performed 45 minutes after stress injection. The images were gated to evaluate regional wall motion and calculate left ventricular ejection fraction. Prone imaging was performed. Stress Test Details Stress Test: Pharmacologic stress testing performed using 0.4 mg of regadenoson per 5 mL given IV over 10 seconds. HR Max Heart Rate (APMHR): 140 bpm Resting HR: 96 bpm Target HR (85% APMHR): 119 bpm Max HR Achieved: 36 bpm % of APMHR: 25 Recovery HR: 128 bpm BP Resting BP: 208/86 mmHg Max BP: 192/69 mmHg Recovery BP: 197/74 mmHg ECG Resting ECG: Sinus Rhythm, nonspecific ST-T abnormalities Stress ECG: Sinus Rhythm, nonspecific ST-T abnormalities ST Change: Nondiagnostic resting ST abnormalities Study Quality Study: Good Study Data Post stress, the left ventricular ejection was 66%.. SSS: 1 SRS: 0 SDS: 1 TID = 0.89. Perfusion There is a medium area of mildly reduced uptake in the basal segment of the inferior wall which is seen on the stress images and improves on the resting images. This area thickens and moves normally and is [place] [address] CARDIAC NUCLEAR IMAGING REPORT Name: KEVIN BANDA Room: [address]#: [id number] Admission: 05/10/20 Attend Phys: Linda George MD Discharge: 05/12/20 Date of : 40 Date of Service: 05/12/20 1631 Report #: [id number] Wall Motion Normal left ventricular wall motion. Nuclear Conclusion ECG Findings: non-diagnostic Clinical Findings: non-diagnostic Nuclear Findings: positive for ischemia Exercise Capacity: not assessed Left Ventricular Function: normal There is a reversible defect in the basal inferior wall, unable to rule out ischemia. There is normal global and segmental LV systolic function. <ELECTRONICALLY SIGNED> By: Rahul Carney MD 05/12/20 1631 163 163 Rahul Carney MD /INF
== END 2020-05-12 15:20 | disposition home or self-care (01) ==
LOC: M.ERS 12:17 → M.TBA-ER 14:03 → M.2W 14:03
PROVIDERS: Emergency Medicine Emergency Medical Services; Internal Medicine; ADMIT Family Medicine; ATTEND Family Medicine
DX: R07.89 Other chest pain (principal); I16.0 Hypertensive urgency; Z20.828 Contact with and (suspected) exposure to other viral communicable diseases; N17.9 Acute kidney failure, unspecified; E66.01 Morbid (severe) obesity due to excess calories; R10.10 Upper abdominal pain, unspecified; E78.5 Hyperlipidemia, unspecified; E11.9 Type 2 diabetes mellitus without complications; Z68.29 Body mass index [BMI] 29.0-29.9, adult